=== PATIENT | female | born 1985 | race Caucasian/White ===

== ENCOUNTER 2016-11-01 00:11 | Emergency (ER) | payer SELFPAY ==
[~2016-11-01] VITALS: Ht 160 cm; Wt 59.1 kg
[~2016-11-01 00:11] MED LIST: NIAC50TA4 PO; NOCURR
[2016-11-01] MEDS ORDERED: PERTUSS(ACELL),DIPH,TET VAC/PF 0.5 ML VIAL IM ONE (03:15)
[2016-11-01] MEDS ORDERED: CefTRIAXone 1 GM/DEXTROSE 50 ML IV ONE (03:15)
[2016-11-01] MEDS ORDERED: KETOROLAC TROMETHAMINE 30 MG/ML VIAL IVP ONE (03:15)
[2016-11-01] MEDS ORDERED: HYDROmorphone 2 MG/ML SYRINGE IVP ONE (04:15)
[2016-11-01] MEDS ORDERED: ONDANSETRON HCL 4 MG/2 ML VIAL IVP ONE (04:15)
[2016-11-01] MEDS: HYDROGEN PEROXIDE 118 ML SOLUTION TP ONE ×2 (04:55→05:02)
[2016-11-01 05:04] VITALS: BP 121/79
== END 2016-11-01 05:05 | disposition home or self-care (01) ==
LOC: EMS 00:12
DX: L03.115 Cellulitis of right lower limb (principal); F17.210 Nicotine dependence, cigarettes, uncomplicated; F12.10 Cannabis abuse, uncomplicated; N83.209 Unspecified ovarian cyst, unspecified side
CPT/HCPCS: 11042; 90471; 90715; 96365; 96375; 99284; 99406; J0696; J1170; J1885; J2405

== ENCOUNTER 2017-04-20 07:11 | Emergency (ER) | payer MEDICAID ==
[~2017-04-20] VITALS: Ht 160 cm; Wt 59.0 kg
[2017-04-20 07:51] VITALS: BP 129/98
[2017-04-20] MEDS ORDERED: LIDOCAINE HCL/PF 1% 2 ML VIAL IM ONE (08:00)
[2017-04-20] MEDS ORDERED: CefTRIAXone SODIUM 1 GM/VIAL IM ONE (08:00)
[2017-04-20] MEDS ORDERED: OxyCODONE HCL/ACETAMINOPHEN 5-325 MG TABLET PO ONE (08:00)
== END 2017-04-20 08:44 | disposition home or self-care (01) ==
LOC: EMS 07:12
DX: K04.7 Periapical abscess without sinus (principal); F17.210 Nicotine dependence, cigarettes, uncomplicated; F12.90 Cannabis use, unspecified, uncomplicated; F19.90 Other psychoactive substance use, unspecified, uncomplicated
CPT/HCPCS: 96372; 99283; J0696; J3490

== ENCOUNTER 2018-02-05 21:22 | Emergency (ER) | payer MEDICAID, OTHER ==
[~2018-02-05] VITALS: Ht 160 cm; Wt 59.0 kg
[2018-02-06] MEDS ORDERED: KETOROLAC TROMETHAMINE 60 MG/2 ML VIAL IM ONE (00:30)
[2018-02-06] MEDS ORDERED: HYDROCODONE/ACETAMINOPHEN 5-325 MG TABLET PO ONE (00:30)
[2018-02-06] MEDS ORDERED: LIDOCAINE HCL/PF 1% 2 ML VIAL IM ONE (00:30)
[2018-02-06] MEDS ORDERED: DiphenhydrAMINE HCL 25 MG CAPSULE PO ONE (00:30)
[2018-02-06] MEDS ORDERED: CefTRIAXone SODIUM 1 GM/VIAL IM ONE (00:30)
[2018-02-06 00:34] VITALS: BP 132/89
== END 2018-02-06 01:40 | disposition home or self-care (01) ==
LOC: EMS 21:22
DX: L03.211 Cellulitis of face (principal); K02.9 Dental caries, unspecified; F12.90 Cannabis use, unspecified, uncomplicated; F15.90 Other stimulant use, unspecified, uncomplicated; F17.210 Nicotine dependence, cigarettes, uncomplicated
CPT/HCPCS: 81025; 96372; 99284; 99406; J0696; J1885; J3490

== ENCOUNTER 2019-01-10 22:00 | Emergency (ER) | payer OTHER ==
[~2019-01-10] VITALS: Ht 157.5 cm; Wt 68.2 kg
[2019-01-10 22:08] VITALS: BP 130/89
[2019-01-10 22:31] LABS: APPEARANCE,URINE CLOUDY (CLEAR); BILIRUBIN,URINE NEGATIVE (NEGATIVE); GLUCOSE, URINE (UA) NEGATIVE (NEGATIVE); KETONES,URINE NEGATIVE (NEGATIVE); LEUKOCYTE ESTERASE ,URINE SMALL (NEGATIVE); NITRATE,URINE NEGATIVE (NEGATIVE); OCCULT BLOOD,URINE NEGATIVE (NEGATIVE); PROTEIN,URINE NEGATIVE (NEGATIVE)
[2019-01-10 22:53] LABS: BACTERIA,URINE Rare /HPF (None Seen); RBC,URINE 0-2 /HPF (0-2); SQUAMOUS EPITHELIAL CELL,UR Many /LPF (None Seen)
== END 2019-01-10 23:30 | disposition left against medical advice (07) ==
LOC: EMS 22:01
DX: R10.9 Unspecified abdominal pain (principal); Z53.21 Procedure and treatment not carried out due to patient leaving prior to being seen by health care provider
CPT/HCPCS: 87086

== ENCOUNTER 2019-04-22 09:53 | Emergency (ER) | payer OTHER ==
[~2019-04-22] VITALS: Ht 162.6 cm; Wt 65.9 kg
[2019-04-22] MEDS ORDERED: SODIUM CHLORIDE 0.9% 2,000 ML IV ONE (10:12)
[2019-04-22] MEDS ORDERED: 0.9% SODIUM CHLORIDE 10 ML SYRINGE IVP PRN (10:15)
[2019-04-22] MEDS ORDERED: ACETAMINOPHEN 500 MG TABLET PO ONE (10:15)
[2019-04-22] MEDS ORDERED: SODIUM CHLORIDE 0.9% 100 ML ONE (10:17)
[2019-04-22] MEDS ORDERED: IOVERSOL 350 MG/ML 100 ML VIAL ONE (10:17)
[2019-04-22] MEDS ORDERED: KETOROLAC TROMETHAMINE 30 MG/ML VIAL IVP ONE (10:30)
[2019-04-22 11:02] LABS: BASOPHILS % (AUTO) 0.2 % (0.0-2.0); EOSINOPHILS % (AUTO) 0.1 % (1.0-6.0); HEMATOCRIT 36.7 % (36-46); HEMOGLOBIN 12.8 g/dL (12.0-16.0); LYMPHOCYTES # (AUTO) 0.4 K/uL (1.0-4.8); LYMPHOCYTES % (AUTO) 4.1 % (22.0-44.0); MEAN CORPUSCULAR HEMOGLOBIN 33.8 pg (26.0-34.0); MEAN CORPUSCULAR VOLUME 97 fL (80-100); MONOCYTES # (AUTO) 0.5 K/uL (0.1-1.0); MONOCYTES % (AUTO) 4.7 % (2.0-9.0); PLATELET COUNT (AUTO) 144 K/uL (150-450); RED BLOOD CELL COUNT(AUTO) 3.79 MIL/uL (4.00-5.20); RED CELL DISTRIBUTION WIDTH 14.7 % (11.5-14.5)
[2019-04-22 11:03] LABS: APPEARANCE,URINE CLOUDY (CLEAR); BILIRUBIN,URINE NEGATIVE (NEGATIVE); GLUCOSE, URINE (UA) NEGATIVE (NEGATIVE); KETONES,URINE 40 mg/dL (NEGATIVE); LEUKOCYTE ESTERASE ,URINE LARGE (NEGATIVE); NITRATE,URINE NEGATIVE (NEGATIVE); OCCULT BLOOD,URINE MODERATE (NEGATIVE); PROTEIN,URINE POS 1+ (NEGATIVE)
[2019-04-22 11:04] LABS: INFLUENZA TYPE A NEGATIVE FOR TYPE A (NEGATIVE); INFLUENZA TYPE B NEGATIVE FOR TYPE B (NEGATIVE)
[2019-04-22 11:04] LABS: NEUTROPHILS % (AUTO) 90.9 % (40.0-70.0)
[2019-04-22 11:09] LABS: ANION GAP 10 mmol/L (8-16); CALCIUM, TOTAL 7.2 mg/dL (8.8-10.5); CARBON DIOXIDE 26 mmol/L (22-29); CHLORIDE 99 mmol/L (98-107); CREATININE 0.65 mg/dL (0.60-1.30); GLOMERULAR FILTR. RATE CALC > 60 mL/min (>60); GLUCOSE,RANDOM 98 mg/dL (70-110); POTASSIUM 3.1 mmol/L (3.5-5.1); SODIUM SERUM 135 mmol/L (136-145); UREA NITROGEN, BLOOD 5 mg/dL (7-18)
[2019-04-22 11:12] LABS: INR 1.1 (0.9-1.1); PROTHROMBIN TIME 11.6 SEC (9.4-11.6)
[2019-04-22 11:13] LABS: BACTERIA,URINE Few /HPF (None Seen); SQUAMOUS EPITHELIAL CELL,UR Few /LPF (None Seen); WBC,URINE 51-100 /HPF (0-5)
[2019-04-22 11:24] LABS: LACTIC ACID 1.3 mmol/L (0.4-2.0)
[2019-04-22 11:27] LABS: ALANINE AMINOTRANSFERASE 89 U/L (12-78); ALKALINE PHOSPHATASE 93 U/L (46-116); ASPARTATE AMINOTRANSFERASE 140 U/L (15-37); BILIRUBIN,TOTAL 1.3 mg/dL (0.1-1.0); HCG,QUANTITATIVE < 1 mIU/mL (0-6); TOTAL PROTEIN, SERUM 6.4 g/dL (6.4-8.2)
[2019-04-22] MEDS ORDERED: CefTRIAXone 1 GM/DEXTROSE 50 ML IV ONE (11:45)
[2019-04-22] MEDS ORDERED: POTASSIUM CHLORIDE 20 MEQ ER TABLET PO ONE (11:45)
[2019-04-22 12:45] VITALS: BP 124/82
== END 2019-04-22 12:57 | disposition home or self-care (01) ==
LOC: EMS 09:55
DX: N12 Tubulo-interstitial nephritis, not specified as acute or chronic (principal); M79.10 Myalgia, unspecified site; F12.90 Cannabis use, unspecified, uncomplicated; F19.90 Other psychoactive substance use, unspecified, uncomplicated
CPT/HCPCS: 36415; 71045; 74177; 80053; 81001; 83605; 84702; 85025; 85610; 87040; 87077; 87086; 87186; 87205; 87804; 93005; 96365; 96375; 99285; J0696; J1885; J7030; J7050; Q9967

== ENCOUNTER 2020-04-19 20:32 | Emergency (ER) | payer MEDICAID, OTHER | END 2020-04-19 22:00 | disposition left against medical advice (07) | LOC: EMS 20:36 | DX: M79.645 Pain in left finger(s) (principal); Z53.21 Procedure and treatment not carried out due to patient leaving prior to being seen by health care provider | CPT/HCPCS: 73130-TC ==

== ENCOUNTER 2020-04-20 13:42 | Emergency (ER) | payer MEDICAID ==
[~2020-04-20] VITALS: Ht 160 cm; Wt 63.6 kg
[2020-04-20 13:57] VITALS: BP 123/68
[2020-04-20] MEDS ORDERED: IBUPROFEN 400 MG TABLET PO ONE (14:30)
== END 2020-04-20 15:30 | disposition home or self-care (01) ==
LOC: EMS 13:44
DX: S62.357A Nondisplaced fracture of shaft of fifth metacarpal bone, left hand, initial encounter for closed fracture (principal); W19.XXXA Unspecified fall, initial encounter; Y93.89 Activity, other specified; Y92.488 Other paved roadways as the place of occurrence of the external cause; Y99.8 Other external cause status
CPT/HCPCS: 73090-TC; 73110-TC; Z7502; Z7610

== ENCOUNTER 2020-05-02 11:26 | Emergency (ER) | payer SELFPAY ==
[~2020-05-02] VITALS: Ht 160 cm; Wt 68.2 kg
[2020-05-02] MEDS ORDERED: KETOROLAC TROMETHAMINE 10 MG TABLET PO ONE (12:00)
[2020-05-02 14:03] VITALS: BP 134/89
== END 2020-05-02 14:11 | disposition home or self-care (01) ==
LOC: EMS 11:26
DX: S62.357A Nondisplaced fracture of shaft of fifth metacarpal bone, left hand, initial encounter for closed fracture (principal); F12.90 Cannabis use, unspecified, uncomplicated; F19.90 Other psychoactive substance use, unspecified, uncomplicated; Z88.0 Allergy status to penicillin; X58.XXXA Exposure to other specified factors, initial encounter; Y93.89 Activity, other specified; Y92.89 Other specified places as the place of occurrence of the external cause; Y99.8 Other external cause status
CPT/HCPCS: 73110-TC; 73130-TC; Z7502; Z7610

== ENCOUNTER 2020-06-29 17:03 | Emergency (ER) | payer SELFPAY ==
[~2020-06-29] VITALS: Ht 160 cm; Wt 63.6 kg
[2020-06-29] MEDS ORDERED: KETOROLAC TROMETHAMINE 30 MG/ML VIAL IVP ONE (18:00)
[2020-06-29] MEDS ORDERED: SODIUM CHLORIDE 0.9% 1,000 ML IV ONE ×2 (18:00→19:45)
[2020-06-29] MEDS ORDERED: ONDANSETRON HCL 4 MG/2 ML VIAL IVP ONE (18:00)
[2020-06-29] MEDS ORDERED: PANTOPRAZOLE SODIUM 40 MG/VIAL IVP ONE (19:45)
[2020-06-29 19:57] LABS: COVID AG,FIA SOURCE NASAL SWAB
[2020-06-29 19:58] LABS: BASOPHILS % (AUTO) 0.7 % (0.0-2.0); EOSINOPHILS % (AUTO) 1.6 % (1.0-6.0); HEMOGLOBIN 13.8 g/dL (12.0-16.0); LYMPHOCYTES # (AUTO) 0.4 K/uL (1.0-4.8); LYMPHOCYTES % (AUTO) 10.7 % (22.0-44.0); MEAN CORPUSCULAR HEMOGLOBIN 33.5 pg (26.0-34.0); MEAN CORPUSCULAR HGB CONC 35.5 G/dL (31.0-37.0); MEAN CORPUSCULAR VOLUME 95 fL (80-100); MONOCYTES # (AUTO) 0.3 K/uL (0.1-1.0); MONOCYTES % (AUTO) 6.6 % (2.0-9.0); NEUTROPHILS # (AUTO) 3.2 K/uL (1.8-7.7); NEUTROPHILS % (AUTO) 80.4 % (40.0-70.0); PLATELET COUNT (AUTO) 212 K/uL (150-450); RED BLOOD CELL COUNT(AUTO) 4.13 MIL/uL (4.00-5.20); RED CELL DISTRIBUTION WIDTH 14.2 % (11.5-14.5)
[2020-06-29 20:02] LABS: APPEARANCE,URINE CLEAR (CLEAR); BILIRUBIN,URINE NEGATIVE (NEGATIVE); GLUCOSE, URINE (UA) NEGATIVE (NEGATIVE); KETONES,URINE NEGATIVE (NEGATIVE); LEUKOCYTE ESTERASE ,URINE NEGATIVE (NEGATIVE); NITRATE,URINE NEGATIVE (NEGATIVE); OCCULT BLOOD,URINE NEGATIVE (NEGATIVE); PH,URINE 7.5 (5.0-8.0); PROTEIN,URINE NEGATIVE (NEGATIVE); UROBILINOGEN,URINE 0.2 mg/dL (<=1.0)
[2020-06-29] MEDS ORDERED: ChlordiazePOXIDE HCL 25 MG CAPSULE PO ONE (20:15)
[2020-06-29 20:19] LABS: ALANINE AMINOTRANSFERASE 63 U/L (12-78); ALBUMIN 4.1 g/dL (3.4-5.0); ALKALINE PHOSPHATASE 94 U/L (46-116); ANION GAP 13 mmol/L (8-16); ASPARTATE AMINOTRANSFERASE 77 U/L (15-37); BILIRUBIN,TOTAL 0.4 mg/dL (0.1-1.0); CALCIUM, TOTAL 8.8 mg/dL (8.8-10.5); CARBON DIOXIDE 27 mmol/L (22-29); CHLORIDE 102 mmol/L (98-107); CREATININE 0.85 mg/dL (0.60-1.30); GLOMERULAR FILTR. RATE CALC > 60 mL/min (>60); GLUCOSE,RANDOM 91 mg/dL (70-110); LIPASE 129 U/L (73-393); SODIUM SERUM 142 mmol/L (136-145); TOTAL PROTEIN, SERUM 7.6 g/dL (6.4-8.2); UREA NITROGEN, BLOOD 4 mg/dL (7-18)
[2020-06-29 20:21] LABS: POTASSIUM 2.9 mmol/L (3.5-5.1)
[2020-06-29] MEDS ORDERED: ACETAMINOPHEN 500 MG TABLET PO ONE (20:30)
[2020-06-29] MEDS ORDERED: POTASSIUM CHLORIDE 20 MEQ ER TABLET PO ONE (20:45)
[2020-06-29 21:25] LABS: HCG,QUANTITATIVE 1 mIU/mL (0-6)
[2020-06-29 22:45] VITALS: BP 129/77
== END 2020-06-29 23:50 | disposition home or self-care (01) ==
LOC: EMS 17:04
DX: U07.1 COVID-19 (principal); E86.0 Dehydration; F10.20 Alcohol dependence, uncomplicated; E87.6 Hypokalemia; F12.90 Cannabis use, unspecified, uncomplicated; F19.90 Other psychoactive substance use, unspecified, uncomplicated; Z88.0 Allergy status to penicillin; Y90.6 Blood alcohol level of 120-199 mg/100 ml
CPT/HCPCS: 36415; 71045; 80053; 81003; 82270; 83690; 84702; 85025; 87426; 96361; 96374; 96375; 99284; C9113; G0480; J2405; J7030

== ENCOUNTER 2020-09-25 11:05 | Emergency (ER) | payer MEDICAID, OTHER ==
[~2020-09-25] VITALS: Ht 160 cm; Wt 68.2 kg
[2020-09-25] MEDS ORDERED: ACETAMINOPHEN 500 MG TABLET PO ONE (11:45)
[2020-09-25] MEDS ORDERED: ONDANSETRON HCL 4 MG/2 ML VIAL IVP ONE (11:45)
[2020-09-25] MEDS ORDERED: SODIUM CHLORIDE 0.9% 1,000 ML IV ONE (11:45)
[2020-09-25 12:10] VITALS: BP 125/94
[2020-09-25 12:35] LABS: EOSINOPHILS % (AUTO) 2.2 % (1.0-6.0); HEMATOCRIT 38.6 % (36-46); HEMOGLOBIN 13.7 g/dL (12.0-16.0); LYMPHOCYTES % (AUTO) 31.2 % (22.0-44.0); MEAN CORPUSCULAR HEMOGLOBIN 35.5 pg (26.0-34.0); MEAN CORPUSCULAR HGB CONC 35.5 G/dL (31.0-37.0); MEAN CORPUSCULAR VOLUME 100 fL (80-100); MONOCYTES # (AUTO) 0.4 K/uL (0.1-1.0); MONOCYTES % (AUTO) 6.4 % (2.0-9.0); NEUTROPHILS # (AUTO) 3.8 K/uL (1.8-7.7); NEUTROPHILS % (AUTO) 59.2 % (40.0-70.0); PLATELET COUNT (AUTO) 244 K/uL (150-450); RED BLOOD CELL COUNT(AUTO) 3.86 MIL/uL (4.00-5.20); RED CELL DISTRIBUTION WIDTH 15.9 % (11.5-14.5)
[2020-09-25 12:43] LABS: ANION GAP 17 mmol/L (8-16); CALCIUM, TOTAL 8.2 mg/dL (8.8-10.5); CARBON DIOXIDE 22 mmol/L (22-29); CHLORIDE 104 mmol/L (98-107); CREATININE 0.63 mg/dL (0.60-1.30); GLOMERULAR FILTR. RATE CALC > 60 mL/min (>60); GLUCOSE,RANDOM 80 mg/dL (70-110); POTASSIUM 3.1 mmol/L (3.5-5.1); SODIUM SERUM 143 mmol/L (136-145); UREA NITROGEN, BLOOD 7 mg/dL (7-18)
[2020-09-25 12:55] LABS: ALANINE AMINOTRANSFERASE 63 U/L (12-78); ALBUMIN 3.9 g/dL (3.4-5.0); ALKALINE PHOSPHATASE 73 U/L (46-116); ASPARTATE AMINOTRANSFERASE 99 U/L (15-37); BILIRUBIN,TOTAL 0.4 mg/dL (0.1-1.0); HCG,QUANTITATIVE < 1 mIU/mL (0-6); TOTAL PROTEIN, SERUM 7.5 g/dL (6.4-8.2)
[2020-09-25] MEDS ORDERED: POTASSIUM CHLORIDE 20 MEQ ER TABLET PO ONE (13:00)
== END 2020-09-25 14:01 | disposition home or self-care (01) ==
LOC: EMS 11:18
DX: N93.9 Abnormal uterine and vaginal bleeding, unspecified (principal)
CPT/HCPCS: 36415; 76830; 76856; 80053; 84702; 85025; 86850; 86900; 86901; 96361; 96374; 99284; J2405; J7030

== ENCOUNTER 2020-10-27 12:07 | Emergency (ER) | payer MEDICAID ==
[~2020-10-27] VITALS: Ht 160 cm; Wt 70.0 kg
[2020-10-27 12:10] VITALS: BP 134/91
== END 2020-10-27 13:30 | disposition left against medical advice (07) ==
LOC: EMS 12:12
DX: M25.519 Pain in unspecified shoulder (principal); Z53.21 Procedure and treatment not carried out due to patient leaving prior to being seen by health care provider

== ENCOUNTER 2021-04-08 12:06 | Emergency (ER) | payer MEDICAID ==
[~2021-04-08] VITALS: Ht 157.5 cm; Wt 59.1 kg
[2021-04-08 14:44] VITALS: BP 122/71
== END 2021-04-08 14:45 | disposition home or self-care (01) ==
LOC: EMS 12:09
DX: S20.20XA Contusion of thorax, unspecified, initial encounter (principal); F17.210 Nicotine dependence, cigarettes, uncomplicated; F12.90 Cannabis use, unspecified, uncomplicated; F10.20 Alcohol dependence, uncomplicated; V03.90XA Pedestrian on foot injured in collision with car, pick-up truck or van, unspecified whether traffic or nontraffic accident, initial encounter; Y93.01 Activity, walking, marching and hiking; Y92.9 Unspecified place or not applicable; Y99.9 Unspecified external cause status
CPT/HCPCS: 71046; 72100; 99284

== ENCOUNTER 2021-10-06 19:37 | Emergency (ER) | payer MEDICAID ==
[~2021-10-06] VITALS: Ht 160 cm; Wt 62.6 kg
[2021-10-06 19:46] VITALS: BP 156/74
== END 2021-10-06 23:12 | disposition left against medical advice (07) ==
LOC: EMS 19:37
DX: M79.672 Pain in left foot (principal); M25.511 Pain in right shoulder; F17.210 Nicotine dependence, cigarettes, uncomplicated; F12.90 Cannabis use, unspecified, uncomplicated; F19.90 Other psychoactive substance use, unspecified, uncomplicated; Z88.0 Allergy status to penicillin
CPT/HCPCS: 99281; Z7502

== ENCOUNTER 2021-12-08 14:23 | Emergency (ER) | payer MEDICAID, SELFPAY ==
[~2021-12-08] VITALS: Ht 160 cm; Wt 63.6 kg
[2021-12-08 15:53] LABS: APPEARANCE,URINE CLEAR (CLEAR); BILIRUBIN,URINE NEGATIVE (NEGATIVE); GLUCOSE, URINE (UA) NEGATIVE (NEGATIVE); KETONES,URINE NEGATIVE (NEGATIVE); LEUKOCYTE ESTERASE ,URINE NEGATIVE (NEGATIVE); NITRATE,URINE NEGATIVE (NEGATIVE); OCCULT BLOOD,URINE NEGATIVE (NEGATIVE); PROTEIN,URINE NEGATIVE (NEGATIVE); SPECIFIC GRAVITIY, URINE 1.019 (1.003-1.030); UROBILINOGEN,URINE <=1.0 mg/dL (<=1.0)
[2021-12-08 15:59] LABS: EOSINOPHILS % (AUTO) 2.9 % (1.0-6.0); HEMATOCRIT 39.1 % (36-46); HEMOGLOBIN 13.7 g/dL (12.0-16.0); LYMPHOCYTES # (AUTO) 1.8 K/uL (1.0-4.8); LYMPHOCYTES % (AUTO) 20.4 % (22.0-44.0); MEAN CORPUSCULAR HGB CONC 35.1 G/dL (31.0-37.0); MEAN CORPUSCULAR VOLUME 100 fL (80-100); MONOCYTES # (AUTO) 0.6 K/uL (0.1-1.0); MONOCYTES % (AUTO) 6.3 % (2.0-9.0); NEUTROPHILS # (AUTO) 6.2 K/uL (1.8-7.7); NEUTROPHILS % (AUTO) 69.4 % (40.0-70.0); PLATELET COUNT (AUTO) 334 K/uL (150-450); RED BLOOD CELL COUNT(AUTO) 3.91 MIL/uL (4.00-5.20); RED CELL DISTRIBUTION WIDTH 13.2 % (11.5-14.5)
[2021-12-08 16:08] LABS: ANION GAP 8 mmol/L (8-16); CALCIUM, TOTAL 9.4 mg/dL (8.8-10.5); CARBON DIOXIDE 28 mmol/L (22-29); CHLORIDE 100 mmol/L (98-107); CREATININE 0.69 mg/dL (0.60-1.30); GLOMERULAR FILTR. RATE CALC > 60 mL/min (>60); GLUCOSE,RANDOM 91 mg/dL (70-110); POTASSIUM 3.7 mmol/L (3.5-5.1); SODIUM SERUM 136 mmol/L (136-145); UREA NITROGEN, BLOOD 10 mg/dL (7-18)
[2021-12-08 16:13] LABS: ALANINE AMINOTRANSFERASE 96 U/L (12-78); ALKALINE PHOSPHATASE 66 U/L (46-116); ASPARTATE AMINOTRANSFERASE 57 U/L (15-37); BILIRUBIN,TOTAL 0.3 mg/dL (0.1-1.0); TOTAL PROTEIN, SERUM 7.6 g/dL (6.4-8.2)
[2021-12-08 16:21] LABS: BACTERIA,URINE None Seen /HPF (None Seen); RBC,URINE None Seen /HPF (0-2)
[2021-12-08 16:22] LABS: SQUAMOUS EPITHELIAL CELL,UR Rare /LPF (None Seen); WBC,URINE 0-2 /HPF (0-5)
[2021-12-08] MEDS ORDERED: SODIUM CHLORIDE 0.9% 100 ML ONE (17:35)
[2021-12-08] MEDS ORDERED: IOHEXOL 300 MG/ML 100 ML VIAL ONE (17:35)
[2021-12-08 18:39] VITALS: BP 123/76
[2021-12-08] MEDS ORDERED: MORPHINE SULFATE 4 MG/ML SYRINGE IVP ONE (18:45)
[2021-12-08] MEDS ORDERED: KETOROLAC TROMETHAMINE 30 MG/ML VIAL IVP ONE (20:15)
== END 2021-12-08 20:51 | disposition home or self-care (01) ==
LOC: EMS 14:23
DX: N83.202 Unspecified ovarian cyst, left side (principal); Z88.0 Allergy status to penicillin
CPT/HCPCS: 36415; 74177; 80053; 81001; 84703; 85025; 96374; 96375; 99285; J1885; J2270; J7050; Q9967

== ENCOUNTER 2022-03-07 17:35 | Emergency (ER) | payer MEDICAID ==
[~2022-03-07] VITALS: Ht 160 cm; Wt 61.4 kg
[2022-03-07 17:43] VITALS: BP 140/90
[2022-03-07 18:44] LABS: APPEARANCE,URINE HAZY (CLEAR); BILIRUBIN,URINE NEGATIVE (NEGATIVE); GLUCOSE, URINE (UA) NEGATIVE (NEGATIVE); KETONES,URINE NEGATIVE (NEGATIVE); LEUKOCYTE ESTERASE ,URINE LARGE (NEGATIVE); NITRATE,URINE NEGATIVE (NEGATIVE); OCCULT BLOOD,URINE NEGATIVE (NEGATIVE); PH,URINE 7.5 (5.0-8.0); PROTEIN,URINE 30-70 mg/dL (NEGATIVE); SPECIFIC GRAVITIY, URINE 1.028 (1.003-1.030)
[2022-03-07 18:58] LABS: RBC,URINE 0-2 /HPF (0-2); WBC,URINE 26-50 /HPF (0-5)
[2022-03-07 18:59] LABS: BACTERIA,URINE Few /HPF (None Seen); MUCUS,URINE Rare LPF (None Seen); SQUAMOUS EPITHELIAL CELL,UR Few /LPF (None Seen)
[2022-03-07] MEDS ORDERED: BACTDSB PO (19:21)
[2022-03-07] MEDS ORDERED: CHLO10CA7 PO (19:46)
[2022-03-07] MEDS ORDERED: ChlordiazePOXIDE HCL 10 MG CAPSULE PO ONE (20:00)
== END 2022-03-07 20:04 | disposition home or self-care (01) ==
LOC: EMS 17:35
DX: N39.0 Urinary tract infection, site not specified (principal); F10.139 Alcohol abuse with withdrawal, unspecified; Z87.440 Personal history of urinary (tract) infections; Z87.448 Personal history of other diseases of urinary system; Z87.42 Personal history of other diseases of the female genital tract; Z88.0 Allergy status to penicillin
CPT/HCPCS: 81001; 87086; 99283

== ENCOUNTER 2022-03-17 14:19 | Emergency (ER) | payer MEDICAID ==
[~2022-03-17] VITALS: Ht 160 cm; Wt 65.9 kg
[~2022-03-17 14:19] MED LIST changes: +BACTDSB PO; +CHLO10CA7 PO; -NIAC50TA4 PO; -NOCURR
[2022-03-17 16:35] LABS: BASOPHILS % (AUTO) 1.1 % (0.0-2.0); EOSINOPHILS % (AUTO) 1.4 % (1.0-6.0); HEMATOCRIT 39.2 % (36-46); HEMOGLOBIN 13.3 g/dL (12.0-16.0); LYMPHOCYTES # (AUTO) 1.6 K/uL (1.0-4.8); LYMPHOCYTES % (AUTO) 21.5 % (22.0-44.0); MEAN CORPUSCULAR VOLUME 103 fL (80-100); MONOCYTES # (AUTO) 0.6 K/uL (0.1-1.0); PLATELET COUNT (AUTO) 322 K/uL (150-450); RED BLOOD CELL COUNT(AUTO) 3.81 MIL/uL (4.00-5.20); RED CELL DISTRIBUTION WIDTH 13.7 % (11.5-14.5)
[2022-03-17 16:48] LABS: ANION GAP 5 mmol/L (8-16); CALCIUM, TOTAL 8.9 mg/dL (8.8-10.5); CARBON DIOXIDE 30 mmol/L (22-29); CHLORIDE 103 mmol/L (98-107); CREATININE 0.85 mg/dL (0.60-1.30); GLUCOSE,RANDOM 88 mg/dL (70-110); POTASSIUM 3.9 mmol/L (3.5-5.1); SODIUM SERUM 138 mmol/L (136-145); UREA NITROGEN, BLOOD 12 mg/dL (7-18)
[2022-03-17 16:49] LABS: APPEARANCE,URINE CLEAR (CLEAR); BILIRUBIN,URINE NEGATIVE (NEGATIVE); GLUCOSE, URINE (UA) NEGATIVE (NEGATIVE); KETONES,URINE NEGATIVE (NEGATIVE); LEUKOCYTE ESTERASE ,URINE NEGATIVE (NEGATIVE); NITRATE,URINE NEGATIVE (NEGATIVE); OCCULT BLOOD,URINE NEGATIVE (NEGATIVE); PROTEIN,URINE NEGATIVE (NEGATIVE); UROBILINOGEN,URINE <=1.0 mg/dL (<=1.0)
[2022-03-17 16:51] LABS: GLOMERULAR FILTR. RATE CALC > 60 mL/min (>60)
[2022-03-17 16:56] LABS: ALANINE AMINOTRANSFERASE 142 U/L (12-78); ALBUMIN 4.1 g/dL (3.4-5.0); ALKALINE PHOSPHATASE 74 U/L (46-116); ASPARTATE AMINOTRANSFERASE 67 U/L (15-37); BILIRUBIN,TOTAL 0.3 mg/dL (0.1-1.0); LIPASE 232 U/L (73-393); TOTAL PROTEIN, SERUM 7.5 g/dL (6.4-8.2)
[2022-03-17 17:12] LABS: HCG,QUANTITATIVE < 1 mIU/mL (0-6)
[2022-03-17 18:05] VITALS: BP 112/65
== END 2022-03-17 19:42 | disposition home or self-care (01) ==
LOC: EMS 14:23
DX: R10.9 Unspecified abdominal pain (principal); Z87.440 Personal history of urinary (tract) infections; Z87.448 Personal history of other diseases of urinary system; Z87.42 Personal history of other diseases of the female genital tract; Z88.0 Allergy status to penicillin
CPT/HCPCS: 80053; 81003; 83690; 84702; 85025; 99283

== ENCOUNTER 2022-03-28 04:25 | Emergency (ER) | payer MEDICAID ==
[~2022-03-28] VITALS: Ht 160 cm; Wt 65.9 kg
[2022-03-28 04:34] VITALS: BP 112/66
[2022-03-28] MEDS ORDERED: IBUP-2070 PO (05:13)
[2022-03-28] MEDS ORDERED: IBUPROFEN 600 MG TABLET PO ONE (05:15)
[2022-03-28] MEDS ORDERED: PERTUSS(ACELL),DIPH,TET VAC/PF 0.5 ML SYRINGE IM. ONE (05:15)
== END 2022-03-28 06:00 | disposition home or self-care (01) ==
LOC: EMS 04:26
DX: S61.411A Laceration without foreign body of right hand, initial encounter (principal); F10.20 Alcohol dependence, uncomplicated; Z87.440 Personal history of urinary (tract) infections; Z87.448 Personal history of other diseases of urinary system; Z87.42 Personal history of other diseases of the female genital tract; Z88.0 Allergy status to penicillin; W26.0XXA Contact with knife, initial encounter; Y93.89 Activity, other specified; Y92.89 Other specified places as the place of occurrence of the external cause; Y99.8 Other external cause status
CPT/HCPCS: 90471; 90715; 99283

== ENCOUNTER 2022-04-04 00:17 | Emergency (ER) | payer MEDICAID ==
[~2022-04-04] VITALS: Ht 160 cm; Wt 65.0 kg
[~2022-04-04 00:17] MED LIST changes: +IBUP-2070 PO
[2022-04-04] MEDS ORDERED: OxyCODONE HCL/ACETAMINOPHEN 5-325 MG TABLET PO ONE (01:30)
[2022-04-04 03:12] VITALS: BP 121/89
== END 2022-04-04 03:14 | disposition home or self-care (01) ==
LOC: EMS 00:17
DX: M79.675 Pain in left toe(s) (principal); F10.20 Alcohol dependence, uncomplicated; F17.210 Nicotine dependence, cigarettes, uncomplicated; Z88.0 Allergy status to penicillin
CPT/HCPCS: 99283

== ENCOUNTER 2022-06-02 19:46 | Emergency (ER) | payer MEDICAID ==
[~2022-06-02] VITALS: Ht 160 cm; Wt 63.0 kg
[2022-06-02 21:24] LABS: COVID AG,FIA SOURCE NASOPHARYNGEAL
[2022-06-02 21:26] LABS: BASOPHILS % (AUTO) 1.1 % (0.0-2.0); EOSINOPHILS % (AUTO) 1.5 % (1.0-6.0); HEMATOCRIT 41.4 % (36-46); HEMOGLOBIN 14.7 g/dL (12.0-16.0); LYMPHOCYTES # (AUTO) 1.4 K/uL (1.0-4.8); LYMPHOCYTES % (AUTO) 26.8 % (22.0-44.0); MEAN CORPUSCULAR HGB CONC 35.5 G/dL (31.0-37.0); MEAN CORPUSCULAR VOLUME 101 fL (80-100); MONOCYTES # (AUTO) 0.4 K/uL (0.1-1.0); MONOCYTES % (AUTO) 7.4 % (2.0-9.0); NEUTROPHILS # (AUTO) 3.2 K/uL (1.8-7.7); NEUTROPHILS % (AUTO) 63.2 % (40.0-70.0); PLATELET COUNT (AUTO) 193 K/uL (150-450); RED BLOOD CELL COUNT(AUTO) 4.08 MIL/uL (4.00-5.20); RED CELL DISTRIBUTION WIDTH 15.8 % (11.5-14.5)
[2022-06-02 21:35] LABS: ANION GAP 9 mmol/L (8-16); CALCIUM, TOTAL 9.3 mg/dL (8.8-10.5); CARBON DIOXIDE 27 mmol/L (22-29); CHLORIDE 100 mmol/L (98-107); CREATININE 0.79 mg/dL (0.60-1.30); GLUCOSE,RANDOM 85 mg/dL (70-110); POTASSIUM 3.7 mmol/L (3.5-5.1); SODIUM SERUM 136 mmol/L (136-145); UREA NITROGEN, BLOOD 9 mg/dL (7-18)
[2022-06-02 21:38] LABS: GLOMERULAR FILTR. RATE CALC > 60 mL/min (>60)
[2022-06-02 21:43] LABS: INFLUENZA TYPE A NEGATIVE FOR TYPE A (NEGATIVE); INFLUENZA TYPE B NEGATIVE FOR TYPE B (NEGATIVE)
[2022-06-02 21:47] LABS: ALANINE AMINOTRANSFERASE 93 U/L (12-78); ALBUMIN 4.4 g/dL (3.4-5.0); ALKALINE PHOSPHATASE 111 U/L (46-116); ASPARTATE AMINOTRANSFERASE 122 U/L (15-37); BILIRUBIN,TOTAL 0.5 mg/dL (0.1-1.0); HCG,QUANTITATIVE < 1 mIU/mL (0-6); LIPASE 179 U/L (73-393); TOTAL PROTEIN, SERUM 8.3 g/dL (6.4-8.2)
[2022-06-02] MEDS ORDERED: BENZ-70 PO (22:26)
[2022-06-02] MEDS ORDERED: CHLO10CA7 PO (22:26)
[2022-06-02] MEDS ORDERED: ONDA-104 PO (22:26)
[2022-06-02 22:34] VITALS: BP 133/88
== END 2022-06-02 22:36 | disposition home or self-care (01) ==
LOC: EMS 19:49
DX: J06.9 Acute upper respiratory infection, unspecified (principal); F10.20 Alcohol dependence, uncomplicated; F17.210 Nicotine dependence, cigarettes, uncomplicated; F12.90 Cannabis use, unspecified, uncomplicated; F15.90 Other stimulant use, unspecified, uncomplicated; Z88.0 Allergy status to penicillin; Z20.822 Contact with and (suspected) exposure to COVID-19
CPT/HCPCS: 71046; 80053; 83690; 84702; 85025; 87804; 99284; 36415-L1; 36415-TC

== ENCOUNTER 2022-06-18 12:11 | Emergency (ER) | payer MEDICAID ==
[~2022-06-18] VITALS: Ht 160 cm; Wt 59.1 kg
[~2022-06-18 12:11] MED LIST changes: -BACTDSB PO; +BENZ-70 PO; -IBUP-2070 PO; +ONDA-104 PO
[2022-06-18] MEDS ORDERED: KETOROLAC TROMETHAMINE 10 MG TABLET PO ONE (13:15)
[2022-06-18] MEDS ORDERED: PHENAZOPYRIDINE HCL 100 MG TABLET PO ONE (13:15)
[2022-06-18 14:29] LABS: BASOPHILS % (AUTO) 1.2 % (0.0-2.0); EOSINOPHILS % (AUTO) 1.9 % (1.0-6.0); HEMATOCRIT 41.5 % (36-46); HEMOGLOBIN 14.2 g/dL (12.0-16.0); LYMPHOCYTES # (AUTO) 0.7 K/uL (1.0-4.8); LYMPHOCYTES % (AUTO) 11.6 % (22.0-44.0); MEAN CORPUSCULAR HEMOGLOBIN 35.5 pg (26.0-34.0); MEAN CORPUSCULAR HGB CONC 34.1 G/dL (31.0-37.0); MEAN CORPUSCULAR VOLUME 104 fL (80-100); MONOCYTES # (AUTO) 0.4 K/uL (0.1-1.0); MONOCYTES % (AUTO) 6.8 % (2.0-9.0); NEUTROPHILS % (AUTO) 78.5 % (40.0-70.0); PLATELET COUNT (AUTO) 237 K/uL (150-450); RED BLOOD CELL COUNT(AUTO) 3.99 MIL/uL (4.00-5.20); RED CELL DISTRIBUTION WIDTH 16.4 % (11.5-14.5)
[2022-06-18 14:34] LABS: ANION GAP 8 mmol/L (8-16); CALCIUM, TOTAL 8.7 mg/dL (8.8-10.5); CARBON DIOXIDE 29 mmol/L (22-29); CHLORIDE 100 mmol/L (98-107); CREATININE 0.73 mg/dL (0.60-1.30); GLUCOSE,RANDOM 103 mg/dL (70-110); POTASSIUM 3.4 mmol/L (3.5-5.1); SODIUM SERUM 137 mmol/L (136-145); UREA NITROGEN, BLOOD 10 mg/dL (7-18)
[2022-06-18 14:35] LABS: GLOMERULAR FILTR. RATE CALC > 60 mL/min (>60)
[2022-06-18 14:40] LABS: ALANINE AMINOTRANSFERASE 120 U/L (12-78); ALKALINE PHOSPHATASE 96 U/L (46-116); ASPARTATE AMINOTRANSFERASE 167 U/L (15-37); BILIRUBIN,TOTAL 0.9 mg/dL (0.1-1.0); TOTAL PROTEIN, SERUM 7.8 g/dL (6.4-8.2)
[2022-06-18] MEDS ORDERED: TraMADol HCL 50 MG TABLET PO ONE (15:30)
[2022-06-18 19:41] LABS: APPEARANCE,URINE HAZY (CLEAR); GLUCOSE, URINE (UA) NEGATIVE (NEGATIVE); KETONES,URINE NEGATIVE (NEGATIVE); LEUKOCYTE ESTERASE ,URINE NEGATIVE (NEGATIVE); NITRATE,URINE POSITIVE (NEGATIVE); OCCULT BLOOD,URINE LARGE (NEGATIVE); PH,URINE 6.5 (5.0-8.0); PROTEIN,URINE 30-70 mg/dL (NEGATIVE); SPECIFIC GRAVITIY, URINE 1.026 (1.003-1.030)
[2022-06-18 19:45] LABS: BILIRUBIN,URINE MODERATE (NEGATIVE)
[2022-06-18 19:47] LABS: AMPHET/METH SCREEN,URINE POSITIVE (NEGATIVE); BARBITURATE SCREEN, URINE NEGATIVE (NEGATIVE); BENZODIAZEPINES SCREEN,URINE POSITIVE (NEGATIVE); CANNABINOID SCREEN,URINE NEGATIVE (NEGATIVE); COCAINE SCREEN,URINE NEGATIVE (NEGATIVE); METHADONE SCREEN, URINE NEGATIVE (NEGATIVE); OPIATE SCREEN,URINE NEGATIVE (NEGATIVE)
[2022-06-18 19:50] LABS: PHENCYCLIDINE SCREEN,URINE NEGATIVE (NEGATIVE)
[2022-06-18 19:55] LABS: RBC,URINE 51-100 /HPF (0-2); WBC,URINE 0-2 /HPF (0-5)
[2022-06-18 19:56] LABS: BACTERIA,URINE Rare /HPF (None Seen); SQUAMOUS EPITHELIAL CELL,UR Few /LPF (None Seen)
[2022-06-18] MEDS ORDERED: DOXY-354 PO (20:11)
[2022-06-18] MEDS ORDERED: NITR-75 PO (20:11)
[2022-06-18] MEDS ORDERED: PHEN-674 PO (20:12)
[2022-06-18 20:15] VITALS: BP 124/86
== END 2022-06-18 20:49 | disposition home or self-care (01) ==
LOC: EMS 13:07
DX: N39.0 Urinary tract infection, site not specified (principal); F12.90 Cannabis use, unspecified, uncomplicated; F15.10 Other stimulant abuse, uncomplicated; F17.210 Nicotine dependence, cigarettes, uncomplicated; N83.209 Unspecified ovarian cyst, unspecified side; Z87.440 Personal history of urinary (tract) infections; Z88.0 Allergy status to penicillin
CPT/HCPCS: 76856; 80053; 81001; 81002; 85025; 99284

== ENCOUNTER 2022-07-18 03:23 | Emergency (ER) | payer MEDICAID ==
[~2022-07-18] VITALS: Ht 160 cm; Wt 63.6 kg
[~2022-07-18 03:23] MED LIST changes: +DOXY-354 PO; +NITR-75 PO; +PHEN-674 PO
[2022-07-18] MEDS ORDERED: SODIUM CHLORIDE 0.9% 1,000 ML IV ONE (03:45)
[2022-07-18 04:29] LABS: BASOPHILS % (AUTO) 1.1 % (0.0-2.0); EOSINOPHILS % (AUTO) 1.4 % (1.0-6.0); HEMATOCRIT 40.3 % (36-46); HEMOGLOBIN 14.2 g/dL (12.0-16.0); LYMPHOCYTES # (AUTO) 1.6 K/uL (1.0-4.8); MEAN CORPUSCULAR HEMOGLOBIN 36.1 pg (26.0-34.0); MEAN CORPUSCULAR HGB CONC 35.3 G/dL (31.0-37.0); MEAN CORPUSCULAR VOLUME 102 fL (80-100); MONOCYTES # (AUTO) 0.4 K/uL (0.1-1.0); MONOCYTES % (AUTO) 8.8 % (2.0-9.0); NEUTROPHILS # (AUTO) 2.8 K/uL (1.8-7.7); NEUTROPHILS % (AUTO) 56.7 % (40.0-70.0); PLATELET COUNT (AUTO) 150 K/uL (150-450); RED BLOOD CELL COUNT(AUTO) 3.94 MIL/uL (4.00-5.20); RED CELL DISTRIBUTION WIDTH 13.7 % (11.5-14.5)
[2022-07-18 04:45] LABS: AMPHET/METH SCREEN,URINE POSITIVE (NEGATIVE); BARBITURATE SCREEN, URINE NEGATIVE (NEGATIVE); BENZODIAZEPINES SCREEN,URINE NEGATIVE (NEGATIVE); CANNABINOID SCREEN,URINE NEGATIVE (NEGATIVE); COCAINE SCREEN,URINE NEGATIVE (NEGATIVE); METHADONE SCREEN, URINE NEGATIVE (NEGATIVE); OPIATE SCREEN,URINE NEGATIVE (NEGATIVE)
[2022-07-18 04:46] LABS: PHENCYCLIDINE SCREEN,URINE NEGATIVE (NEGATIVE)
[2022-07-18 04:52] LABS: B-TYPE NATRIURETIC PEPTIDE < 5 pg/mL (0-100)
[2022-07-18 05:03] LABS: ALANINE AMINOTRANSFERASE 58 U/L (12-78); ALBUMIN 4.4 g/dL (3.4-5.0); ALKALINE PHOSPHATASE 94 U/L (46-116); ANION GAP 15 mmol/L (8-16); ASPARTATE AMINOTRANSFERASE 107 U/L (15-37); BILIRUBIN,TOTAL 0.8 mg/dL (0.1-1.0); CALCIUM, TOTAL 8.8 mg/dL (8.8-10.5); CARBON DIOXIDE 25 mmol/L (22-29); CHLORIDE 98 mmol/L (98-107); CREATINE KINASE, TOTAL ONLY 166 U/L (26-192); CREATININE 0.84 mg/dL (0.60-1.30); GLUCOSE,RANDOM 100 mg/dL (70-110); HCG,QUANTITATIVE < 1 mIU/mL (0-6); SODIUM SERUM 138 mmol/L (136-145); TOTAL PROTEIN, SERUM 8.2 g/dL (6.4-8.2); UREA NITROGEN, BLOOD 8 mg/dL (7-18)
[2022-07-18 05:07] LABS: GLOMERULAR FILTR. RATE CALC > 60 mL/min (>60)
[2022-07-18 05:09] LABS: POTASSIUM 2.7 mmol/L (3.5-5.1)
[2022-07-18] MEDS ORDERED: POTASSIUM CHLORIDE 20 MEQ ER TABLET PO ONE (05:15)
[2022-07-18] MEDS ORDERED: MAGNESIUM SULFATE 2 GM, MVI, ADULT NO.1 WITH VIT K 10 ML, THIAMINE 100 MG, FOLIC ACID 1... IV ONE ×5 (05:30)
[2022-07-18] MEDS ORDERED: SODIUM CHLORIDE 0.9% 500 ML IV ONE (06:00)
[2022-07-18 06:44] VITALS: BP 123/81
[2022-07-18] MEDS: POTASSIUM CHL 10 MEQ/WATER 50 ML IV SCH ×2 (06:52→07:49)
== END 2022-07-18 08:40 | disposition home or self-care (01) ==
LOC: EMS 03:24
DX: F15.10 Other stimulant abuse, uncomplicated (principal); F10.129 Alcohol abuse with intoxication, unspecified; Y90.8 Blood alcohol level of 240 mg/100 ml or more; E87.6 Hypokalemia; N83.209 Unspecified ovarian cyst, unspecified side; F17.210 Nicotine dependence, cigarettes, uncomplicated; F12.90 Cannabis use, unspecified, uncomplicated; Z88.0 Allergy status to penicillin
CPT/HCPCS: 99285; 96365; 71045; 96361; 96367; 80053; 82550; 83735; 83880; 84484; 84702; 85025; 36415; 93005; 80307 ×2; G0480; J3490 ×2; J3411; J3480; J3475; J7030; J7040

== ENCOUNTER 2022-12-26 18:14 | Emergency (ER) | payer MEDICAID, OTHER ==
[~2022-12-26] VITALS: Ht 162.6 cm; Wt 66.4 kg
[2022-12-26 18:21] VITALS: TEMP 98.3
[2022-12-26 19:48] LABS: BASOPHILS % (AUTO) 1.8 % (0.0-2.0); EOSINOPHILS % (AUTO) 1.7 % (1.0-6.0); HEMATOCRIT 37.3 % (36-46); HEMOGLOBIN 13.2 g/dL (12.0-16.0); LYMPHOCYTES # (AUTO) 1.5 K/uL (1.0-4.8); LYMPHOCYTES % (AUTO) 26.3 % (22.0-44.0); MEAN CORPUSCULAR HEMOGLOBIN 36.8 pg (26.0-34.0); MEAN CORPUSCULAR HGB CONC 35.3 G/dL (31.0-37.0); MEAN CORPUSCULAR VOLUME 104 fL (80-100); MONOCYTES # (AUTO) 0.6 K/uL (0.1-1.0); MONOCYTES % (AUTO) 10.5 % (2.0-9.0); NEUTROPHILS # (AUTO) 3.4 K/uL (1.8-7.7); NEUTROPHILS % (AUTO) 59.7 % (40.0-70.0); PLATELET COUNT (AUTO) 181 K/uL (150-450); RED BLOOD CELL COUNT(AUTO) 3.58 MIL/uL (4.00-5.20)
[2022-12-26 19:56] LABS: ANION GAP 12 mmol/L (8-16); CALCIUM, TOTAL 8.6 mg/dL (8.8-10.5); CARBON DIOXIDE 25 mmol/L (22-29); CHLORIDE 106 mmol/L (98-107); CREATININE 0.72 mg/dL (0.60-1.30); GLOMERULAR FILTR. RATE CALC > 60 mL/min (>60); GLUCOSE,RANDOM 85 mg/dL (70-110); POTASSIUM 3.2 mmol/L (3.5-5.1); SODIUM SERUM 143 mmol/L (136-145)
[2022-12-26 20:02] LABS: ALANINE AMINOTRANSFERASE 173 U/L (12-78); ALKALINE PHOSPHATASE 101 U/L (46-116); ASPARTATE AMINOTRANSFERASE 335 U/L (15-37); BILIRUBIN,TOTAL 0.4 mg/dL (0.1-1.0); LIPASE 199 U/L (73-393); TOTAL PROTEIN, SERUM 7.7 g/dL (6.4-8.2)
[2022-12-26] MEDS ORDERED: POTASSIUM CHLORIDE 10% 40 MEQ/30 ML LIQUID UDCUP PO ONE (20:15)
[2022-12-26] MEDS ORDERED: LIB25 PO (21:04)
[2022-12-26] MEDS ORDERED: MAG30ORA11 PO (21:04)
[2022-12-26] MEDS ORDERED: ChlordiazePOXIDE HCL 25 MG CAPSULE PO ONE (21:15)
[2022-12-26 21:27] VITALS: BP 115/74; PULSE 93; RESP 16
== END 2022-12-26 21:29 | disposition still patient (30) ==
LOC: EMS 18:14
DX: F10.229 Alcohol dependence with intoxication, unspecified (principal); K70.30 Alcoholic cirrhosis of liver without ascites; K29.20 Alcoholic gastritis without bleeding; E87.6 Hypokalemia; R56.9 Unspecified convulsions; N15.9 Renal tubulo-interstitial disease, unspecified; F17.210 Nicotine dependence, cigarettes, uncomplicated; F12.90 Cannabis use, unspecified, uncomplicated; F15.90 Other stimulant use, unspecified, uncomplicated; Z87.440 Personal history of urinary (tract) infections; Z88.0 Allergy status to penicillin
CPT/HCPCS: 99283; 80053; 82962; 83690; 84703; 85025; G0480

== ENCOUNTER 2023-02-28 10:17 | Emergency (ER) | payer OTHER ==
[~2023-02-28] VITALS: Ht 162.6 cm; Wt 66.8 kg
[~2023-02-28 10:17] MED LIST changes: -BENZ-70 PO; -CHLO10CA7 PO; -DOXY-354 PO; +LIB25 PO; +MAG30ORA11 PO; -NITR-75 PO; -ONDA-104 PO; -PHEN-674 PO
[2023-02-28 10:25] VITALS: TEMP 98.4
[2023-02-28 10:40] VITALS: BP 133/75; PULSE 96; RESP 16
[2023-02-28] MEDS ORDERED: DOXY50 PO (11:56)
== END 2023-02-28 12:46 | disposition home or self-care (01) ==
LOC: EMS 10:31
DX: L03.113 Cellulitis of right upper limb (principal); F10.20 Alcohol dependence, uncomplicated; F12.90 Cannabis use, unspecified, uncomplicated; F15.90 Other stimulant use, unspecified, uncomplicated; F17.210 Nicotine dependence, cigarettes, uncomplicated
CPT/HCPCS: 99283

== ENCOUNTER 2023-09-24 07:57 | Emergency (ER) | payer OTHER ==
[~2023-09-24] VITALS: Ht 160 cm; Wt 65.9 kg
[~2023-09-24 07:57] MED LIST changes: +CHLO25CA6 PO; +DOXY50 PO; -LIB25 PO
[2023-09-24 08:06] VITALS: TEMP 98.1
[2023-09-24 08:58] LABS: BASOPHILS % (AUTO) 1.2 % (0.0-2.0); EOSINOPHILS % (AUTO) 0.9 % (1.0-6.0); HEMATOCRIT 40.6 % (36-46); HEMOGLOBIN 14.5 g/dL (12.0-16.0); LYMPHOCYTES % (AUTO) 13.8 % (22.0-44.0); MEAN CORPUSCULAR HEMOGLOBIN 37.6 pg (26.0-34.0); MEAN CORPUSCULAR HGB CONC 35.8 G/dL (31.0-37.0); MEAN CORPUSCULAR VOLUME 105 fL (80-100); MONOCYTES # (AUTO) 0.5 K/uL (0.1-1.0); NEUTROPHILS # (AUTO) 5.7 K/uL (1.8-7.7); NEUTROPHILS % (AUTO) 77.1 % (40.0-70.0); PLATELET COUNT (AUTO) 245 K/uL (150-450); RED BLOOD CELL COUNT(AUTO) 3.86 MIL/uL (4.00-5.20); RED CELL DISTRIBUTION WIDTH 13.3 % (11.5-14.5); WHITE BLOOD COUNT (AUTO) 7.4 K/uL (4.5-11.0)
[2023-09-24] MEDS: MORPHINE SULFATE 4 MG/ML SYRINGE IVP ONE (09:00)
[2023-09-24] MEDS: ONDANSETRON HCL 4 MG/2 ML VIAL IVP ONE (09:00)
[2023-09-24 09:01] LABS: RBC MORPHOLOGY COMMENT ABNORMAL RBC MORPH
[2023-09-24 09:08] LABS: ANION GAP 10 mmol/L (8-16); CALCIUM, TOTAL 8.4 mg/dL (8.8-10.5); CARBON DIOXIDE 25 mmol/L (22-29); CHLORIDE 101 mmol/L (98-107); CREATININE 0.72 mg/dL (0.60-1.30); GLOMERULAR FILTR. RATE CALC > 60 mL/min (>60); GLUCOSE,RANDOM 87 mg/dL (70-110); POTASSIUM 3.3 mmol/L (3.5-5.1); SODIUM SERUM 136 mmol/L (136-145); UREA NITROGEN, BLOOD 7 mg/dL (7-18)
[2023-09-24 09:09] LABS: INR 1.1 (0.9-1.1); PROTHROMBIN TIME 11.1 SEC (9.4-11.6)
[2023-09-24 09:14] LABS: ALANINE AMINOTRANSFERASE 86 U/L (12-78); ALBUMIN 3.9 g/dL (3.4-5.0); ALKALINE PHOSPHATASE 153 U/L (46-116); ASPARTATE AMINOTRANSFERASE 177 U/L (15-37); BILIRUBIN,TOTAL 1.8 mg/dL (0.1-1.0); TOTAL PROTEIN, SERUM 7.9 g/dL (6.4-8.2)
[2023-09-24 10:15] LABS: INFLUENZA A-RTPCR,COMBO NEGATIVE (NEGATIVE); INFLUENZA B-RTPCR,COMBO NEGATIVE (NEGATIVE); RESPIRATORY SYNCYTIAL VRS-PCR NEGATIVE (NEGATIVE); SARS COVID19 RTPCR, COMBO NEGATIVE (NEGATIVE)
[2023-09-24 10:40] LABS: ALCOHOL, URINE DRUG SCREEN NEGATIVE (NEGATIVE); AMPHET/METH SCREEN,URINE POSITIVE (NEGATIVE); BARBITURATE SCREEN, URINE NEGATIVE (NEGATIVE); BENZODIAZEPINES SCREEN,URINE NEGATIVE (NEGATIVE); CANNABINOID SCREEN,URINE NEGATIVE (NEGATIVE); COCAINE SCREEN,URINE NEGATIVE (NEGATIVE); METHADONE SCREEN, URINE NEGATIVE (NEGATIVE); OPIATE SCREEN,URINE POSITIVE (NEGATIVE); PHENCYCLIDINE SCREEN,URINE NEGATIVE (NEGATIVE)
[2023-09-24 10:47] LABS: APPEARANCE,URINE HAZY (CLEAR); BILIRUBIN,URINE NEGATIVE (NEGATIVE); COLOR,URINE YELLOW (YELLOW); GLUCOSE, URINE (UA) NEGATIVE (NEGATIVE); LEUKOCYTE ESTERASE ,URINE MODERATE (NEGATIVE); NITRATE,URINE POSITIVE (NEGATIVE); OCCULT BLOOD,URINE NEGATIVE (NEGATIVE); PH,URINE 6.5 (5.0-8.0); PH,URINE DRUG SCREEN 6.5 (5.0-8.0); PROTEIN,URINE 30-70 mg/dL (NEGATIVE); SPECIFIC GRAVITIY, URINE 1.028 (1.003-1.030); UROBILINOGEN,URINE <=1.0 mg/dL (<=1.0)
[2023-09-24 10:55] LABS: BACTERIA,URINE Many /HPF (None Seen); RBC,URINE 0-2 /HPF (0-2); SQUAMOUS EPITHELIAL CELL,UR Moderate /LPF (None Seen)
[2023-09-24] MEDS ORDERED: CIPR-279 PO (11:15)
[2023-09-24] MEDS ORDERED: CefTRIAXone 1 GM/DEXTROSE 50 ML IV ONE (11:15)
[2023-09-24] MEDS ORDERED: DiphenhydrAMINE HCL 50 MG/ML VIAL IVP ONE (11:15)
[2023-09-24] MEDS: CIPROFLOXACIN HCL 250 MG TABLET PO ONE (11:20)
[2023-09-24 11:42] VITALS: BP 124/80; PULSE 78; RESP 16
== END 2023-09-24 11:43 | disposition home or self-care (01) ==
LOC: EMS 08:22
DX: F10.20 Alcohol dependence, uncomplicated (principal); R39.15 Urgency of urination; R10.31 Right lower quadrant pain; F12.90 Cannabis use, unspecified, uncomplicated; F15.90 Other stimulant use, unspecified, uncomplicated; Z87.891 Personal history of nicotine dependence; Z20.822 Contact with and (suspected) exposure to COVID-19; Y90.9 Presence of alcohol in blood, level not specified
CPT/HCPCS: 99285; 74176; 96374; 0241U; 71045; 96375; 80053; 81001; 84703; 85025; 85610; 36415; 87086; 87186; 80307; J2270; J2405

== ENCOUNTER 2024-01-19 20:10 | Emergency (ER) | payer OTHER ==
[~2024-01-19] VITALS: Ht 160 cm; Wt 63.0 kg
[~2024-01-19 20:10] MED LIST changes: -CHLO25CA6 PO; +CIPR-279 PO; -DOXY50 PO; -MAG30ORA11 PO
[2024-01-19 20:23] VITALS: BP 131/82; PULSE 95; RESP 20; TEMP 98.2
[2024-01-19] MEDS ORDERED: DOXY-354 PO (21:31)
[2024-01-19] MEDS ORDERED: SULF-261 PO (21:31)
[2024-01-19] MEDS: DOXYCYCLINE HYCLATE 100 MG TABLET PO ONE (21:33)
[2024-01-19] MEDS: SULFAMETHOX/TRIMETH DS 800-160 MG/TABLET PO ONE (21:33)
[2024-01-19] MEDS: IBUPROFEN 600 MG TABLET PO ONE (21:34)
== END 2024-01-19 22:16 | disposition home or self-care (01) ==
LOC: EMS 20:13
DX: S21.002A Unspecified open wound of left breast, initial encounter (principal); F10.20 Alcohol dependence, uncomplicated; F12.90 Cannabis use, unspecified, uncomplicated; F15.90 Other stimulant use, unspecified, uncomplicated; Z87.891 Personal history of nicotine dependence; Z88.0 Allergy status to penicillin; W57.XXXA Bitten or stung by nonvenomous insect and other nonvenomous arthropods, initial encounter; Y93.89 Activity, other specified; Y92.89 Other specified places as the place of occurrence of the external cause; Y99.8 Other external cause status
CPT/HCPCS: 99284; Z7502; Z7610

== ENCOUNTER 2024-05-22 18:45 | Emergency (ER) | payer OTHER ==
[~2024-05-22 18:45] MED LIST changes: +DOXY-354 PO; +SULF-261 PO
[2024-05-22] MEDS ORDERED: ONDA-104 PO (23:14)
== END 2024-05-22 19:07 | disposition left against medical advice (07) ==
LOC: EMS 18:46
DX: R41.0 Disorientation, unspecified (principal); Z53.21 Procedure and treatment not carried out due to patient leaving prior to being seen by health care provider

== ENCOUNTER 2024-05-22 19:43 | Emergency (ER) | payer OTHER ==
[~2024-05-22] VITALS: Ht 160 cm; Wt 57.7 kg
[2024-05-22 19:51] VITALS: TEMP 97.6
[2024-05-22 20:26] LABS: BASOPHILS % (AUTO) 1.1 % (0.0-2.0); EOSINOPHILS % (AUTO) 1.8 % (1.0-6.0); HEMATOCRIT 37.7 % (36-46); HEMOGLOBIN 13.4 g/dL (12.0-16.0); LYMPHOCYTES % (AUTO) 34.9 % (22.0-44.0); MEAN CORPUSCULAR HEMOGLOBIN 38.8 pg (26.0-34.0); MEAN CORPUSCULAR HGB CONC 35.6 G/dL (31.0-37.0); MEAN CORPUSCULAR VOLUME 109 fL (80-100); MONOCYTES # (AUTO) 0.5 K/uL (0.1-1.0); NEUTROPHILS # (AUTO) 3.1 K/uL (1.8-7.7); NEUTROPHILS % (AUTO) 54.2 % (40.0-70.0); PLATELET COUNT (AUTO) 248 K/uL (150-450); RED BLOOD CELL COUNT(AUTO) 3.47 MIL/uL (4.00-5.20); RED CELL DISTRIBUTION WIDTH 12.8 % (11.5-14.5); WHITE BLOOD COUNT (AUTO) 5.7 K/uL (4.5-11.0)
[2024-05-22 20:37] LABS: ALCOHOL, BLOOD (SERUM) 243 mg/dL (0-10)
[2024-05-22 20:38] LABS: ANION GAP 7 mmol/L (8-16); CALCIUM, TOTAL 8.8 mg/dL (8.8-10.5); CARBON DIOXIDE 29 mmol/L (22-29); CHLORIDE 101 mmol/L (98-107); CREATININE 0.74 mg/dL (0.60-1.30); GLOMERULAR FILTR. RATE CALC > 60 mL/min (>60); GLUCOSE,RANDOM 84 mg/dL (70-110); POTASSIUM 3.3 mmol/L (3.5-5.1); SODIUM SERUM 137 mmol/L (136-145); UREA NITROGEN, BLOOD 7 mg/dL (7-18)
[2024-05-22 20:42] LABS: ALANINE AMINOTRANSFERASE 75 U/L (12-78); ALBUMIN 3.9 g/dL (3.4-5.0); ALKALINE PHOSPHATASE 223 U/L (46-116); ASPARTATE AMINOTRANSFERASE 244 U/L (15-37); BILIRUBIN,TOTAL 1.1 mg/dL (0.1-1.0); RBC MORPHOLOGY COMMENT ABNORMAL RBC MORPH; TOTAL PROTEIN, SERUM 7.8 g/dL (6.4-8.2)
[2024-05-22] MEDS: FAMOTIDINE 20 MG TABLET PO ONE (22:56)
[2024-05-22] MEDS: ONDANSETRON 4 MG TABLET PO ONE (22:56)
[2024-05-22] MEDS ORDERED: ONDA-104 PO (23:14)
[2024-05-22 23:15] VITALS: BP 134/89; PULSE 87; RESP 16; O2SAT 100
== END 2024-05-23 00:11 | disposition home or self-care (01) ==
LOC: EMS 19:45
DX: R11.2 Nausea with vomiting, unspecified (principal); F10.90 Alcohol use, unspecified, uncomplicated; R41.0 Disorientation, unspecified; F12.90 Cannabis use, unspecified, uncomplicated; K74.60 Unspecified cirrhosis of liver; Z88.0 Allergy status to penicillin; Z87.440 Personal history of urinary (tract) infections; Y90.9 Presence of alcohol in blood, level not specified
CPT/HCPCS: 99283; 80048; 80076; 82140; 85025; 36415; G0480; Q0162

== ENCOUNTER 2024-05-28 09:35 | Emergency (ER) | payer OTHER ==
[~2024-05-28] VITALS: Ht 160 cm; Wt 57.7 kg
[~2024-05-28 09:35] MED LIST changes: +ONDA-104 PO
[2024-05-28 11:17] LABS: BASOPHILS % (AUTO) 0.9 % (0.0-2.0); EOSINOPHILS % (AUTO) 0.2 % (1.0-6.0); HEMATOCRIT 40.8 % (36-46); LYMPHOCYTES # (AUTO) 0.6 K/uL (1.0-4.8); LYMPHOCYTES % (AUTO) 9.6 % (22.0-44.0); MEAN CORPUSCULAR HEMOGLOBIN 37.5 pg (26.0-34.0); MEAN CORPUSCULAR HGB CONC 34.4 G/dL (31.0-37.0); MEAN CORPUSCULAR VOLUME 109 fL (80-100); MONOCYTES # (AUTO) 0.4 K/uL (0.1-1.0); MONOCYTES % (AUTO) 7.5 % (2.0-9.0); NEUTROPHILS # (AUTO) 4.8 K/uL (1.8-7.7); NEUTROPHILS % (AUTO) 81.8 % (40.0-70.0); PLATELET COUNT (AUTO) 176 K/uL (150-450); RED BLOOD CELL COUNT(AUTO) 3.74 MIL/uL (4.00-5.20); RED CELL DISTRIBUTION WIDTH 13.3 % (11.5-14.5); WHITE BLOOD COUNT (AUTO) 5.9 K/uL (4.5-11.0)
[2024-05-28 11:29] LABS: ANION GAP 8 mmol/L (8-16); CALCIUM, TOTAL 8.8 mg/dL (8.8-10.5); CARBON DIOXIDE 29 mmol/L (22-29); CHLORIDE 97 mmol/L (98-107); CREATININE 0.63 mg/dL (0.60-1.30); GLOMERULAR FILTR. RATE CALC > 60 mL/min (>60); GLUCOSE,RANDOM 92 mg/dL (70-110); SODIUM SERUM 134 mmol/L (136-145); UREA NITROGEN, BLOOD 6 mg/dL (7-18)
[2024-05-28 11:33] LABS: TROPONIN I-HIGH SENSITIVITY 4 ng/L (<51)
[2024-05-28 13:07] LABS: COVID AG,FIA SOURCE NASAL SWAB
[2024-05-28 13:27] LABS: RAPID GROUP A STREP NEGATIVE (NEGATIVE)
[2024-05-28 13:28] LABS: INFLUENZA TYPE A NEGATIVE FOR TYPE A (NEGATIVE); INFLUENZA TYPE B NEGATIVE FOR TYPE B (NEGATIVE)
[2024-05-28 13:30] LABS: SARS-COV2 (COVID) ANTIGEN,FIA Positive (Negative)
[2024-05-28 14:35] VITALS: TEMP 98.2
[2024-05-28] MEDS ORDERED: IBUP-1492 PO (14:39)
[2024-05-28] MEDS ORDERED: NIRM1TAB10 PO (14:39)
[2024-05-28 14:58] VITALS: BP 139/89; PULSE 91; RESP 18; O2SAT 99
== END 2024-05-28 14:59 | disposition home or self-care (01) ==
LOC: EMS 09:37
DX: U07.1 COVID-19 (principal); F10.20 Alcohol dependence, uncomplicated; F12.90 Cannabis use, unspecified, uncomplicated; F15.90 Other stimulant use, unspecified, uncomplicated; K74.60 Unspecified cirrhosis of liver; Z88.0 Allergy status to penicillin
CPT/HCPCS: 71045; 80048; 84484; 85025; 87430; 87804; 93005; 99285; 36415-L1; 36415-TC

== ENCOUNTER 2024-08-03 23:35 | Emergency (ER) | payer OTHER ==
[~2024-08-03] VITALS: Ht 160 cm; Wt 66.4 kg
[~2024-08-03 23:35] MED LIST changes: +IBUP-1492 PO; +NIRM1TAB10 PO
[2024-08-03 23:46] VITALS: BP 0/0; PULSE 114; RESP 22; TEMP 97.8; O2SAT 99
[2024-08-04 00:36] LABS: APPEARANCE,URINE HAZY (CLEAR); BILIRUBIN,URINE NEGATIVE (NEGATIVE); COLOR,URINE YELLOW (YELLOW); GLUCOSE, URINE (UA) NEGATIVE (NEGATIVE); KETONES,URINE NEGATIVE (NEGATIVE); LEUKOCYTE ESTERASE ,URINE MODERATE (NEGATIVE); NITRATE,URINE NEGATIVE (NEGATIVE); OCCULT BLOOD,URINE NEGATIVE (NEGATIVE); PROTEIN,URINE 30-70 mg/dL (NEGATIVE); SPECIFIC GRAVITIY, URINE 1.031 (1.003-1.030)
[2024-08-04 00:44] LABS: ALCOHOL, URINE DRUG SCREEN POSITIVE (NEGATIVE); AMPHET/METH SCREEN,URINE POSITIVE (NEGATIVE); BARBITURATE SCREEN, URINE NEGATIVE (NEGATIVE); BENZODIAZEPINES SCREEN,URINE POSITIVE (NEGATIVE); CANNABINOID SCREEN,URINE NEGATIVE (NEGATIVE); COCAINE SCREEN,URINE NEGATIVE (NEGATIVE); METHADONE SCREEN, URINE NEGATIVE (NEGATIVE); OPIATE SCREEN,URINE NEGATIVE (NEGATIVE); PHENCYCLIDINE SCREEN,URINE NEGATIVE (NEGATIVE)
[2024-08-04 01:15] LABS: BACTERIA,URINE None Seen /HPF (None Seen); RBC,URINE None Seen /HPF (0-2); SQUAMOUS EPITHELIAL CELL,UR Moderate /LPF (None Seen)
== END 2024-08-04 00:16 | disposition left against medical advice (07) ==
LOC: EMS 23:35
DX: R10.32 Left lower quadrant pain (principal); R44.0 Auditory hallucinations; Z53.21 Procedure and treatment not carried out due to patient leaving prior to being seen by health care provider
CPT/HCPCS: 80307; 81001

== ENCOUNTER 2025-01-23 22:41 | Emergency (ER) | payer OTHER ==
[~2025-01-23] VITALS: Ht 160 cm; Wt 54.5 kg
[~2025-01-23 22:41] MED LIST changes: -CIPR-279 PO; -DOXY-354 PO; -IBUP-1492 PO; -NIRM1TAB10 PO; -ONDA-104 PO; +PANT-31 PO; -SULF-261 PO
[2025-01-23 23:16] VITALS: TEMP 98.6
[2025-01-24 00:14] LABS: PLATELET COUNT (AUTO) 171 K/uL (150-450); RED BLOOD CELL COUNT(AUTO) 3.14 MIL/uL (4.00-5.20); RED CELL DISTRIBUTION WIDTH 14.1 % (11.5-14.5); WHITE BLOOD COUNT (AUTO) 4.7 K/uL (4.5-11.0)
[2025-01-24 00:15] LABS: RBC MORPHOLOGY COMMENT ABNORMAL RBC MORPH
[2025-01-24 00:22] LABS: CALCIUM, TOTAL 8.0 mg/dL (8.8-10.5); CREATININE 0.67 mg/dL (0.60-1.30); GLOMERULAR FILTR. RATE CALC > 60 mL/min (>60); GLUCOSE,RANDOM 100 mg/dL (70-110); SODIUM SERUM 143 mmol/L (136-145); UREA NITROGEN, BLOOD 8 mg/dL (7-18)
[2025-01-24 00:29] LABS: ALCOHOL, BLOOD (SERUM) 157 mg/dL (0-10)
[2025-01-24] MEDS: SODIUM CHLORIDE 0.9% 1,000 ML IV ONE (00:29)
[2025-01-24 00:33] LABS: ASPARTATE AMINOTRANSFERASE 235 U/L (15-37); HCG,QUANTITATIVE < 1 mIU/mL (0-6); TOTAL PROTEIN, SERUM 7.1 g/dL (6.4-8.2)
[2025-01-24] MEDS: PANTOPRAZOLE SODIUM 40 MG/VIAL IVP ONE (00:34)
[2025-01-24 03:24] LABS: APPEARANCE,URINE CLEAR (CLEAR); GLUCOSE, URINE (UA) NEGATIVE (NEGATIVE); LEUKOCYTE ESTERASE ,URINE NEGATIVE (NEGATIVE); NITRATE,URINE NEGATIVE (NEGATIVE); OCCULT BLOOD,URINE NEGATIVE (NEGATIVE); SPECIFIC GRAVITIY, URINE 1.012 (1.003-1.030)
[2025-01-24] MEDS ORDERED: CHLO10CA7 PO (04:09)
[2025-01-24 04:18] VITALS: BP 109/76; PULSE 89; RESP 18; O2SAT 98
== END 2025-01-24 04:19 | disposition home or self-care (01) ==
LOC: EMS 23:18
DX: F10.129 Alcohol abuse with intoxication, unspecified (principal); K29.20 Alcoholic gastritis without bleeding; F12.90 Cannabis use, unspecified, uncomplicated; F15.90 Other stimulant use, unspecified, uncomplicated; Z79.899 Other long term (current) drug therapy; Z88.0 Allergy status to penicillin; Y90.6 Blood alcohol level of 120-199 mg/100 ml
CPT/HCPCS: 99283; 80048; 80076; 81003; 83690; 84702; 85025; 36415; 96374; 96361; G0480; J2470; J7030

== ENCOUNTER 2025-04-15 02:45 | Emergency (ER) | payer OTHER ==
[~2025-04-15] VITALS: Ht 160 cm; Wt 56.8 kg
[~2025-04-15 02:45] MED LIST changes: +CHLO10CA7 PO
[2025-04-15 02:46] VITALS: TEMP 97.9
[2025-04-15] MEDS ORDERED: IBUP-1492 PO (03:39)
[2025-04-15] MEDS ORDERED: HYDR-4062 PO (03:39)
[2025-04-15] MEDS ORDERED: CLIN-142 PO (03:39)
[2025-04-15 03:40] VITALS: BP 119/89; PULSE 73; RESP 18; O2SAT 98
[2025-04-15] MEDS: IBUPROFEN 800 MG TABLET PO ONE (03:45)
[2025-04-15] MEDS: HYDROCODONE/ACETAMINOPHEN 5-325 MG TABLET PO ONE (03:45)
== END 2025-04-15 04:31 | disposition home or self-care (01) ==
LOC: EMS 02:45
DX: K08.89 Other specified disorders of teeth and supporting structures (principal); F10.20 Alcohol dependence, uncomplicated; F12.90 Cannabis use, unspecified, uncomplicated; K74.60 Unspecified cirrhosis of liver; Z87.440 Personal history of urinary (tract) infections; Z88.0 Allergy status to penicillin
CPT/HCPCS: 99284; Z7502; Z7610